=== PATIENT | female | born 1950 | race Caucasian/White ===

== ENCOUNTER 2021-04-28 14:41 | Outpatient (CLI) | payer MEDICARE, SELFPAY ==
--- NOTE | ~2021-04-28 | XR_ITS ---
EXAMINATION: XR chest 2V EXAM DATE: 04/28/2021 15:06 INDICATION: R05 - Cough. TECHNIQUE: Frontal and lateral projections of the chest obtained and reviewed. Comparison is made to prior examination from 2012. FINDINGS: There is right upper lobe 2 x 4 cm opacity which could be pneumonia or cancer. If patient has pneumonia clinically a followup chest x-ray in 3-4 weeks, and to resolution, should be obtained t o exclude possibility of cancer. If the patient does not have pneumonia clinically, then a chest CT w ith contrast should be considered for better characterization. The lungs are otherwise clear. There are no pleural effusions. The cardiomediastinal silhouette is within normal limits. There is no pneumothorax suspected. The bones and soft tissues are unremarkab le. IMPRESSION: Indeterminate right upper lobe opacity, could be pneumonia or cancer. Recommendation radha ronquillo. Reviewed, dictated and finalized at location B. IMPRESSION: Indeterminate right upper lobe opacity, could be pneumonia or cance r. Recommendation above.
== END 2021-04-28 14:42 | disposition home or self-care (01) ==
LOC: ANHIMG 14:47
PROVIDERS: PCP Internal Medicine; Visit Provider Nurse Practitioner
DX: R05 Cough (principal)
CPT/HCPCS: 71046

== ENCOUNTER → 2021-05-19 08:57 | Outpatient (CLI) | payer MEDICARE, SELFPAY ==
--- NOTE | ~2021-05-19 | CT_ITS ---
EXAMINATION:CT diagnostic chest w con DATE: 05/19/2021 09:35 INDICATION: Chronic cough. TECHNIQUE: Computed tomography (CT) of the chest was performed with 75 mL Omnipaque 350 intravenous c ontrast. Automated exposure control and iterative reconstruction technique were employed. The dose-le ngth product (DLP) was 127.95 mGy-cm. COMPARISON: Chest 2 views 04/28/2021 FINDINGS: There is mild scarring at the lung apices. There is mild atelectasis bilaterally. There is a 3.6 x 1.2 cm mass in right lung upper lobe. There are clusters of nodules in right middle lobe. No pleural effusion. The heart size is normal. No pericardial effusion. There is ectasia of ascending ao rta measuring 4.0 cm. There are bilateral breast implants. There is severe thoracic spondylosis. IMPRESSION: 1. Right lung upper lobe mass and clustered nodules in right middle lobe. The morphology of these fin dings favors granulomatous disease, but right upper lobe malignancy is not excluded. PET/CT is recomm ended. Reviewed, dictated and finalized at location A. IMPRESSION: 1. Right lung upper lobe mass and clustered nodules in right middle lobe. The m orphology of these findings favors granulomatous disease, but right upper lobe malignancy is not excluded. PET/CT is recommended.
[2021-05-19 09:16] LABS: Estimated Glomerular Filt Rate > 60
== END ==
PROVIDERS: PCP Internal Medicine; Visit Provider Nurse Practitioner
DX: R05.9 Cough, unspecified (principal); R91.1 Solitary pulmonary nodule; R91.8 Other nonspecific abnormal finding of lung field
CPT/HCPCS: 71260; Q9967

== ENCOUNTER 2021-05-31 07:45 | Outpatient (CLI) | payer MEDICARE, SELFPAY ==
--- NOTE | ~2021-05-31 | PE_ITS ---
EXAMINATION: PET skull to mid thigh DATE: 05/31/2021 09:31 INDICATION: Solitary pulmonary nodule TECHNIQUE: Blood glucose level was 85 mg/dL. 9.677 mCi of 18-fluorodeoxyglucose (18-FDG) was administ ered i.v. Low dose computed tomography (CT) images were acquired from the base of the brain to the pr oximal thighs for attenuation correction and anatomic localization. Positron emission tomography (PET ) images were acquired in the same distribution beginning 56 minutes after injection. The dose-length product (DLP) was 245.58 mGy-cm. COMPARISON: None FINDINGS: Head/neck: No abnormal FDG uptake is identified. FDG activity in the oral cavity and vocal cords with out suspicious CT correlate is likely physiologic. Chest: There is a stable 3.6 x 1.4 cm mass of the right upper lobe. There is a focus of increased FDG uptake at the periphery of the mass with an SUV max of 4.9. Low level FDG activity is seen in the me dial portion of the mass. There is a cluster of subpleural nodules in the right middle lobe with mild FDG activity. Dependent atelectasis is noted. No pathologically enlarged thoracic lymph nodes are id entified. The heart size is normal. There is no pleural effusion or pneumothorax. Bilateral breast im plants are noted. The ascending aorta is ectatic measuring 4 cm at the level of the main pulmonary ar kamryn. A pessary is noted. Abdomen/pelvis/proximal thighs: No abnormal FDG uptake is identified. Physiologic FDG activity is pre sent in the bowel and urinary tract. The liver, spleen, pancreas, gallbladder, and adrenal glands are normal. The kidneys are unremarkable. No pathologically enlarged abdominal or pelvic lymph nodes are identified. There is no free intraperitoneal gas or evidence of bowel obstruction. There is a fat-co ntaining umbilical hernia. A moderate volume of colonic stool is present. Musculoskeletal: No abnormal FDG uptake is identified. There is severe cervical thoracic, and lumbar spondylosis. IMPRESSION: 1. Stable right upper lobe mass with peripheral FDG uptake. Presence of peripheral, rather than centr al, FDG uptake favors infection over malignancy as central FDG uptake with peripheral low level activ ity would be more commonly seen with malignancy. In addition, the presence of airspace opacities with low level FDG uptake in the right middle lobe also suggest infection. Follow-up CT in six weeks afte r appropriate therapy is recommended. If there is no appreciable interval improvement, biopsy should be considered at that time. Reviewed, dictated and finalized at location A. IMPRESSION: 1. Stable right upper lobe mass with peripheral FDG uptake. Presence of periphe ral, rather than central, FDG uptake favors infection over malignancy as centra l FDG uptake with peripheral low level activity would be more commonly seen wit h malignancy. In addition, the presence of airspace opacities with low level FD G uptake in the right middle lobe also suggest infection. Follow-up CT in six w eeks after appropriate therapy is recommended. If there is no appreciable inter mu improvement, biopsy should be considered at that time.
[2021-05-31 08:05] LABS: Glucose Point of Care 85 mg/dl (65-105)
== END 2021-05-31 07:46 | disposition home or self-care (01) ==
PROVIDERS: PCP Internal Medicine; Visit Provider Nurse Practitioner
DX: R91.1 Solitary pulmonary nodule (principal); R91.8 Other nonspecific abnormal finding of lung field
CPT/HCPCS: 78815; A9552

== ENCOUNTER 2021-07-28 09:47 | Outpatient (CLI) | payer MEDICARE, SELFPAY ==
--- NOTE | ~2021-07-28 | CT_ITS ---
EXAMINATION: CT diagnostic chest w con DATE: 07/28/2021 10:10 INDICATION: Solitary pulmonary nodule TECHNIQUE: Computed tomography (CT) of the chest was performed with 75 cc Omnipaque 350 intravenous c ontrast. Automated exposure control and iterative reconstruction technique were employed. Exam dose: 128.20 mGy-cm total exam DLP. COMPARISON: 05/31/[address] scan 05/19/2021 CT chest 04/28/2021 2 view chest FINDINGS: There is an approximately 1.4 x 3.1 cm irregular posterior right upper lobe lung mass, with out improvement since 05/19/2021, FDG avid on 05/31/2021 PET imaging, very suspicious for primary beatriz g cancer. CT guided percutaneous lung biopsy is recommended. There is mild bilateral apical scarring. No pulmonary infiltrate or consolidation is detected. Heart size is normal. No pericardial or pleural effusion. No thoracic aortic aneurysm or dissection. No hilar or mediastinal mass lesion or lymphadenopathy is detected. Status post bilateral augmentation mammoplasty. No suspicious osteolytic or osteoblastic lesions are noted. IMPRESSION: Persistent right upper lobe irregular lung mass measuring up to 1.4 x 3.1 cm, FDG avid, suspicious for lung cancer. CT guided percutaneous needle biopsy is recommended. Dr. Berger communicated the report by telephone on 07/28/[address] Dowling on 07/28/2021 at 1340 ho urs hours. Reviewed, dictated and finalized at Location A. Reviewed, dictated and finalized at location B. [employer] EXAMINER IMPRESSION: Persistent right upper lobe irregular lung mass measuring up to 1. 4 x 3.1 cm, FDG avid, suspicious for lung cancer. CT guided percutaneous needle biopsy is recommended. Dr. Berger communicated the report by telephone on 07/28/[address] Dolwing on 07/28/2021 at 1340 hours hours.
[2021-07-28 10:09] LABS: Estimated Glomerular Filt Rate > 60
== END 2021-07-28 09:48 | disposition home or self-care (01) ==
LOC: ANHIMG 09:47
PROVIDERS: PCP Internal Medicine; Visit Provider Nurse Practitioner
DX: R91.8 Other nonspecific abnormal finding of lung field (principal)
CPT/HCPCS: 71260; Q9967

== ENCOUNTER 2021-10-21 15:51 | Outpatient (CLI) | payer MEDICARE, SELFPAY ==
--- NOTE | ~2021-10-21 | XR_ITS ---
EXAMINATION: XR chest 2V DATE: 10/21/2021 16:18 INDICATION: Cough. Shortness of breath. TECHNIQUE: Frontal and lateral views of the chest were obtained. COMPARISON: Chest 2 views 04/28/2021, chest CT 07/28/2021, 05/19/21 FINDINGS: There is a 3 x 1 cm mass in right lung upper lobe. There is mild scarring at the lung apice s. No pleural effusion or pneumothorax. The heart size is normal. Breast implants are noted. IMPRESSION: 1. Mass again seen in right lung upper lobe, which may be malignancy or chronic infection. Noncontras t chest CT is recommended. Reviewed, dictated and finalized at location A. IMPRESSION: 1. Mass again seen in right lung upper lobe, which may be malignancy or chronic infection. Noncontrast chest CT is recommended.
== END 2021-10-21 15:52 | disposition home or self-care (01) ==
LOC: ANHIMG 15:57
PROVIDERS: PCP Internal Medicine; Visit Provider Family Medicine
DX: R05.9 Cough, unspecified (principal); R06.02 Shortness of breath; R91.8 Other nonspecific abnormal finding of lung field
CPT/HCPCS: 71046

== ENCOUNTER 2021-12-13 08:30 | Outpatient (CLI) | payer MEDICARE, SELFPAY ==
[2021-12-13] MEDS: SODIUM CHLOR 3% 15 ML NEB (RESPIRATORY THERAPY) 6 ML INHALATION (09:00)
== END 2021-12-13 08:31 | disposition home or self-care (01) ==
LOC: ANHPFT 08:32
PROVIDERS: PCP Internal Medicine; Visit Provider Internal Medicine Pulmonary Disease
DX: R05.9 Cough, unspecified (principal); R91.8 Other nonspecific abnormal finding of lung field
CPT/HCPCS: 87015; 87116; 87206

== ENCOUNTER 2022-01-04 09:11 | Outpatient (CLI) | payer MEDICARE, SELFPAY ==
[2022-01-04 09:55] LABS: Basophils Percent Auto 0.4 % (0.2-1.2); Eosinophils Absolute Auto 0.1 K/mm3 (0-0.3); Eosinophils Percent Auto 1.7 % (0-4.4); Hemoglobin 13.2 g/dL (12.0-15.0); Immature Granulocyte Absolute 0.01 K/mm3 (0.00-0.031); Immature Granulocyte Percent A 0.1 % (0-0.5); Lymphocytes Absolute Auto 2.87 K/mm3 (0.9-3.2); Lymphocytes Percent Auto 41.8 % (18.3-44.2); Mean Corpuscular HGB Conc 31.4 g/dl (32-36); Mean Corpuscular Hemoglobin 29.7 pg (26-34); Mean Corpuscular Volume 94.4 fl (80-100); Monocytes Absolute Auto 0.8 K/mm3 (0.1-0.6); Monocytes Percent Auto 12.2 % (2.6-8.5); Neutrophils Percent Auto 43.8 % (45.5-73.1); Platelet Count Result 306 k/mm3 (150-375); Red Blood Count 4.45 M/mm3 (4.2-5.4); Red Cell Distribution Width 12.8 % (11.5-14.5); White Blood Count 6.9 K/mm3 (4.5-10.0)
[2022-01-04 10:05] LABS: Alanine Aminotransferase 21 U/L (6-35); Albumin Level 4.3 g/dL (3.5-5.1); Alkaline Phosphatase 73 U/L (38-126); Anion Gap 4 mmol/L (8-16); Aspartate Amino Transferase 37 U/L (14-36); Bilirubin,Total 0.6 mg/dL (0.2-1.3); Blood Urea Nitrogen 11 mg/dL (7-17); CRP < 0.5 mg/dL (<1.0); Calcium 8.8 mg/dL (8.4-10.2); Carbon Dioxide 30 mmol/L (22-30); Chloride 105 mmol/L (98-107); Creatine Kinase 263 U/L (30-135); Estimated Glomerular Filt Rate > 60; Glucose 94 mg/dL (65-110); Potassium 3.9 mmol/L (3.4-5.0); Sodium 139 mmol/L (137-145)
[2022-01-04 10:19] LABS: Rheumatoid Factor < 8.6 IU/ML (<12)
[2022-01-04 10:50] LABS: Erythrocyte Sedimentation Rate 10 mm/hr (0-20)
[2022-01-06 11:29] LABS: Aldolase 6.1 U/L (<=8.1)
[2022-01-07 15:44] LABS: ANA Cascade Screen Negative (Negative)
[2022-01-08 13:05] LABS: Anti Cyclic Citrullinated Pept <16 Units (<20)
[2022-01-13 22:30] LABS: ANCA Screen Negative (Negative)
== END 2022-01-04 09:12 | disposition home or self-care (01) ==
LOC: ANHLAB 09:18
PROVIDERS: PCP Internal Medicine; Visit Provider Internal Medicine Pulmonary Disease
DX: J98.4 Other disorders of lung (principal); J84.9 Interstitial pulmonary disease, unspecified; J44.9 Chronic obstructive pulmonary disease, unspecified; R91.1 Solitary pulmonary nodule
CPT/HCPCS: 36415; 80053; 82085; 82550; 85025; 85652; 86036; 86038; 86140; 86200; 86331; 86430; 86606; 86609

== ENCOUNTER 2023-03-27 09:39 | Emergency (ER) | payer MEDICARE, SELFPAY ==
[2023-03-27 09:57] VITALS: BP 120/81; PULSE 66; RESP 18; TEMP 36.5; O2SAT 100
[2023-03-27 11:14] VITALS: BP 127/90; PULSE 69; RESP 18; O2SAT 100
[2023-03-27 13:01] VITALS: BP 105/63; PULSE 55; RESP 18; O2SAT 99
--- NOTE | 2023-03-27 13:07 | ED.GENADULT ---
HPI - General Adult General Chief complaint: Wound/Laceration Stated complaint: right leg lac Time Seen by Provider: 03/27/23 11:55 History of Present Illness HPI narrative: 72-year-old female present emergency department for evaluation for evaluation of an injury to her right leg. Patient reports yesterday she was working in the yard and had her leg cut on a planter. Patient states she is unsure of her tetanus status. Related Data Home Medications Medication Instructions Recorded Confirmed ascorbate calcium (vitamin C) 500 500 mg PO DAILY 03/24/21 03/22/23 mg tablet multivitamin 1 tablet PO DAILY 03/24/21 03/22/23 iron 18 mg tablet 18 mg PO DAILY 03/28/22 03/22/23 vitamin B complex (B 1 tablet PO DAILY 03/28/22 03/22/23 Complex-Vitamin B12 tablet) zinc 25 mg tablet mg PO 03/28/22 03/22/23 wes root extract 15 mg chewable mg PO 10/03/22 03/22/23 tablet omega 3-atm-leo-fish oil 60 mg-90 1 cap PO DAILY 10/03/22 03/22/23 mg-500 mg capsule (Fish Oil) selenium 200 mcg capsule 200 mcg PO DAILY 10/03/22 03/22/23 nitrofurantoin 100 mg PO DAILY 03/27/23 monohydrate/macrocrystals 100 mg capsule Allergies Allergy/AdvReac Type Severity Reaction Status Date / Time No Known Allergies Allergy Mild Verified 03/27/23 09:04 Review of Systems Review of Systems: All systems reviewed & are unremarkable except as noted in HPI and below PMFSH Past Medical History Medical History Ascending aortic aneurysm GERD (gastroesophageal reflux disease) HPV (human papilloma virus) infection Lung nodule Osteoarthritis Surgical History Surgical History Knee joint replacement status Family History Family History Father Patient's father is in good health Mother Renal failure Sibling Heart disease Social History Social History Smoking status: Never smoker Alcohol intake: former Lack of Transportation: No Lack of Food: Never True Current Housing: I Have Housing Concerned About Future Housing: No Difficulty Paying Gas/Electric Bills: No Difficulty Paying for Meds: No Currently Unemployed: YES Education: High School Diploma/GED Difficulty w/ Childcare or Family Care: No Exam Narrative: APPEARANCE: Well appearing, no pain, no distress, well-nourished. HEAD: normocephalic, atraumatic. EYES: PERRLA/EOMI, conjunctivae clear. NOSE: Normal no drainage NECK: Supple. No adenopathy, no masses. RESPIRATORY: Airway patent, respirations nonlabored. Clear to auscultation bilaterally, no rales, rhonchi, wheezing. CARDIOVASCULAR: Regular rate and rhythm without murmurs rubs or gallops. ABDOMINAL: Soft, nontender, nondistended, normal bowel sounds MUSCULOSKELETAL: Moves all extremities. Strength/ROM intact, No edema, No calf tenderness. NEURO: Alert. Cranial nerves II through XII intact. Grossly intact SKIN: Laceration to right lateral leg, hemostasis achieved. Course Course Emergency Course: 72-year-old female presented ED for evaluation of right leg pain secondary to a laceration. Patient was unsure of her tetanus and this was updated in the ED. Patient was also started on Keflex. Laceration was repaired as described above. Patient was started on antibiotics in the emergency department. Patient was discharged home with antibiotics. Patient's tetanus was updated in the ED. Vital Signs Vital signs: Vital Signs Temperature 97.7 F 03/27/23 09:57 Pulse Rate 66 03/27/23 09:57 Respiratory Rate 18 03/27/23 09:57 Blood Pressure 120/81 03/27/23 09:57 Pulse Oximetry 100 03/27/23 09:57 Oxygen Delivery Room Air 03/27/23 09:57 Temperature 97.7 F 03/27/23 09:57 Pulse Rate 62 03/27/23 15:06 Respiratory Rate 18 03/27/23 15:06 Blood Press
[2023-03-27] MEDS: CEPHALEXIN 500 MG CAPSULE PO (13:22)
[2023-03-27] MEDS: TETANUS,DIPHTHERIA,AC PERTUSSIS ADULT (0.5 ML) BOOSTRIX IM (13:23)
[2023-03-27 15:06] VITALS: BP 113/78; PULSE 62; RESP 18; O2SAT 99
== END 2023-03-27 15:14 | disposition home or self-care (01) ==
PROVIDERS: Emergency Provider Emergency Medicine; PCP Internal Medicine
DX: S81.811A Laceration without foreign body, right lower leg, initial encounter (principal); Z23 Encounter for immunization; K21.9 Gastro-esophageal reflux disease without esophagitis; M19.90 Unspecified osteoarthritis, unspecified site; Y93.H2 Activity, gardening and landscaping; W26.8XXA Contact with other sharp object(s), not elsewhere classified, initial encounter; Z96.659 Presence of unspecified artificial knee joint
CPT/HCPCS: 12004; 90471; 90715; 99283; A9270

== ENCOUNTER 2023-10-16 08:44 | Outpatient (CLI) | payer MEDICARE, SELFPAY ==
--- NOTE | ~2023-10-16 | CT_ITS ---
EXAMINATION:CT diagnostic chest wo con DATE: 10/16/2023 09:20 INDICATION: Solitary pulmonary nodule. TECHNIQUE: Computed tomography (CT) of the chest was performed without intravenous contrast. Automate d exposure control and iterative reconstruction technique were employed. The dose-length product (DLP ) was 56.31 mGy-cm. COMPARISON: Chest CT 02/22/2022, 05/19/2021 FINDINGS: There is mild scarring at the lung apices. There is a 17 mm nodule in right upper lobe with improvement from 05/19/2021. Calcified pulmonary nodules and calcified hilar lymph nodes are consist ent with old granulomatous disease. There is mild atelectasis in right middle lobe and lingula. 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 No pleural effusion. Breast implants are noted. There is ectasia of ascending aorta measuring 4.2 cm. The heart size is normal. There is a trace pericardial effusion. There is severe thoracic spondylosis. There is mild chronic anterior wed ging of multiple vertebral bodies. IMPRESSION: 1. Right upper lobe nodule with improvement from 05/19/2021, likely granulomatous disease. Reviewed, dictated and finalized at location A. IMPRESSION: 1. Right upper lobe nodule with improvement from 05/19/2021, likely granulomato us disease.
== END 2023-10-16 08:45 | disposition home or self-care (01) ==
PROVIDERS: PCP Internal Medicine; Visit Provider Internal Medicine Pulmonary Disease
DX: R91.1 Solitary pulmonary nodule (principal)
CPT/HCPCS: 71250

== ENCOUNTER 2024-04-10 09:41 | Outpatient (CLI) | payer MEDICARE, SELFPAY ==
--- NOTE | ~2024-04-10 | US_ITS ---
EXAMINATION: US aorta DATE: 04/10/2024 10:43 INDICATION: Thoracic aortic aneurysm without rupture TECHNIQUE: Grayscale, color Doppler, and pulsed Doppler images of the aorta and common iliac arteries were obtained. COMPARISON: None. FINDINGS: The proximal aorta measures 2.8 cm. The mid aorta measures 1.7 cm. The distal aorta measures 1.7 cm. The right common iliac artery measures 1.0 cm. The left common iliac artery measures 1.1 cm. IMPRESSION: 1. Normal caliber abdominal aorta. Reviewed, dictated and finalized at location A.
== END 2024-04-10 09:42 | disposition home or self-care (01) ==
PROVIDERS: PCP Nurse Practitioner; Visit Provider Nurse Practitioner
DX: I71.20 Thoracic aortic aneurysm, without rupture, unspecified (principal)
CPT/HCPCS: 76775

== ENCOUNTER 2024-08-21 09:03 | Outpatient (CLI) | payer MEDICARE, MEDICAID, SELFPAY ==
--- NOTE | ~2024-08-21 | DEXA_ITS ---
Bone Density Report Name: LIZZY BELL Age: 74 Sex: Female Ethnicity: White Date of : 1950 Indication: postmenopausal; screening for osteoporosis; height loss; hysterectomy; Referring Provider: JOAQUIN SANFORD Study: Bone densitometry was performed. Exam Date: August 21, 2024 Accession number: [id number] Bone Density: Region BMD T-score Z-score Classification AP Spine(L1-L4) 0.834 -1.9 0.3 Osteopenia Femoral Neck (Left) 0.476 -3.4 -1.4 Osteoporosis Total Hip (Left) 0.886 -0.5 1.2 Normal Femoral Neck (Right) 0.679 -1.5 0.4 Osteopenia Total Hip (Right) 0.839 -0.8 0.8 Normal Total Hip Mean 0.863 -0.7 1.0 Normal World Health Organization criteria for BMD impression classify patients as: Normal (T-score at or above -1.0), Osteopenia (T-score between -1.0 and -2.5), or Osteoporosis (T-score at or below -2.5). 10-year Fracture Risk: FRAX not reported because: Some T-score for Spine Total or Hip Total or Femoral Neck at or below -2.5 Clinical Information Provided by Patient: Has used the following medications: Vitamin D, Calcium Has the following medical conditions: Hysterectomy Patient maximum height was 64 Menopause Age: 73 No regular weight bearing exercise Drinks caffeinated beverages Onset of menses at age 14 Number of children 3 Impression: The patient has osteoporosis, based on the Left Femoral Neck T-score. Discussion: INCREASED RISK OF FRACTURE. BONE DENSITY IS UNDESIRABLY LOW AT ONE OR MORE SKELETAL SITES, CONSISTENT WITH POSTMENOPAUSAL OSTEOPOROSIS. This patient's lowest T-score meets the World Health Organization's (WHO) criteria for osteoporosis at one or more sites (T-score -2.5 or below). In untreated patients, the risk of osteoporotic fracture increases approximately two-fold for each 1.0 SD decrease in T-score. Low bone density is not the only risk factor for fracture; also consider factors such as patient's age, frailty or poor health, risk of falling, risk of injury, previous osteoporotic fracture, family history of osteoporosis, cigarette smoking, low body weight, etc. Not everyone with low bone mineral density has osteoporosis; osteomalacia and other metabolic bone disorders should also be considered. Patients who have osteoporosis should be evaluated for specific diseases and conditions (secondary causes) that may cause or contribute to bone loss. The [place] [employer] Endocrinologists (AACE) and National Osteoporosis Foundation (NOF) recommend pharmacologic intervention for all postmenopausal women whose T-score is in this range. The patient should follow a healthful lifestyle (good nutrition with adequate calcium and vitamin D, and appropriate weight-bearing exercise). Follow-Up: Consider a repeat BMD and Vertebral Fracture Assessment (VFA) exam in 2 years or sooner if medically necessary, to reassess this patient's status. Reported by: LEIGH on 08/21/2024 9:56:00 AM. Reviewed, dictated and finalized at location AEarlene SAINI
--- NOTE | ~2024-08-21 | MM_ITS ---
EXAMINATION: MM screening ramon BI w sandra HISTORY: Screening mammogram TECHNIQUE: Craniocaudal and mediolateral oblique 3-D tomosynthesis images were obtained and synthetic 2-D images were generated. CAD analysis was submitted and interpreted. COMPARISON: 06/11/2013 BREAST PARENCHYMAL COMPOSITION:Dense: The breasts are heterogeneously dense, which may obscure small masses. FINDINGS: No suspicious mass, calcification, or architectural distortion are identified in either yuli ast to suggest malignancy. There has been no suspicious interval change. IMPRESSION: No mammographic evidence of malignancy. Recommend routine screening mammography in one year. BI-RADS Category 1: Negative Reviewed, dictated and finalized at location . [employer]
--- OUTSIDE RECORDS SUMMARY | 2024-08-28 01:56 | XMS_ITS | Clinical Summary ---
Author Organization [facility] Address [address] [place] [address] Care Team Providers Care Face Burler Name Role Phone Derrell Mcmahan DO Primary Care Provider [phone] Allergies No known active allergies Medications multivitamin with iron tablet Take 1 tablet by mouth daily after lunch Active calcium carbonate-wilman min D3 (CALTRATE 600 + D) 1500 mg (600 mg elemental) -400 units per tablet Take 1 tablet by mouth daily after lunch Active iron 18 mg tablet Take 1 tablet by mouth daily after lunch Active zinc acetate 25 mg (zinc) capsule Take by mouth Medrol Dose Pack scheduling ONLY Active selenium 200 mcg capsule Take by mouth daily after lunch Active krill oil 500 mg capsule Take by mouth daily after lunch Active vitamin b complex tablet Take 1 tablet by mouth daily after lunch Active ascorbic acid (VITAMIN C ORAL) Take by mouth daily after lunch Active wes root (WES EXTRACT ORAL) Take by mouth daily after lunch Active estradioL (VAGIFEM) 10 mcg tablet INSERT 1 TABLET(10 MCG) VAGINALLY 3 TIMES A WEEK 35 tablet 3 4 Active sodium, potassium & mag sulfates (SUPREP BOWEL KIT) 17.5-3.13-1.6 gram recon solnIndication s:Bowel Evacuation Please follow the instructions that were sent to your patient portal 177 mL 4 024 Discontin ued(Stop Taking at Discharge ) Active Problems Problem Noted Date Diagnosed Date Hx of colonic polyps 06/20/2024 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 Provider places/replaces. Upsized to #5 ring (from #4 ring) in 2021. 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 Pt desires hyst. 08/31/23: LAVH-BSO, vaginal biopsy, uterosacral ligament suspesion (Ghetti), colpo. Pathology benign without e/o dysplasia Assessment & Plan (09/26/2023 12:23 PM BUDDER): - reviewed surgical pathology; completely benign - recommend repeat pap in 1yr; vaginal paps q3yr for duration Mass of right lung 08/02/2021 Pap smear abnormality of cer vix/human papillomavirus (HPV) positive 04/27/2019 Overview (11/24/2020): 2017: NILM, HR HPV positive 2018: NILM, neg 2019: Cotest performed due to white are visualized on cervix. Pap ASC-H, HPV positive Colposcopy inadequate, biopsies/ECC negative. Results reviewed with pathology. 2020: ASC-US, HPV negative 2021: Cotest due Breast lump 07/27/2017 Positive test for human papillomavirus (HPV) Menopause present 05/01/2017 Brachial plexus neuropathy 04/26/2015 Lumbago 04/26/2015 Gastroesophageal reflux disease 02/16/2014 Sore throat 02/16/2014 Localized swelling, mass, and lump of head 02/16 Breast disorder 07/21/2013 Knee pain 03/12/2012 Resolved Problems Problem Noted Date Diagnosed Date Resolved Date Surgical follow-up care 08/14/201209/07 Encounters Date Type Department Care Team Description 08/04/2024 2:30 PM BUDDER - 08/04/2024 3:15 PM BUDDER Surgery [facility] [address] [address] Ubaldo Morgan MD COLONOSCOPY 08/04/2024 2:27 PM BUDDER Anesthesia Event [facility] [address] [address] Janett Green MD Zueck, Jason M., CARD SELLER 08/04/2024 1:32 PM BUDDER - 08/04/2024 3:45 PM BUDDER Hospital Encounter [facility] [address] [address] Ubaldo Morgan MD Discharge Disposition: Discharge to home or self care 07/28/2024 Telephone [facility] [address] [place] [phone] Ludy Alexander RN 07/28/2024 Telephone [facility] [address] [place] [phone] Ludy Alexander, RN GI PROCEDURE 7 DAY PRE CALL 06/20/2024 Telephone [facility] [address] [place] [address] for Advanced Medicine 12th [place] [address] [place] [phone] Jayla Taylor gi pre procedure assessment from Last 3 Months Immunizations Name Administration Dates Next Due Influenza, Quadrivalent, Hig h Dose, Preservative Free, Intrr 04/07/2022,05/17/2021 Influenza, Quadrivalent, Spl it, Preservative Free, Intramuscular 10/11/2015 Influenza, Trivalent, IM (MDV) 05/18/2014 Influenza, Unspecified 07/19/2017,08/13/2012 Pneumococcal Conjugate Pcv20 04/07/2022,11/03/19 22 Tdap 12/03/2015 ZOSTER LIVE 04/10/2014 Surgical History Surgery Date Site/Laterality Comments EPIDURAL INJECTION LUMBOSACRAL 05/27/2015 N/A KNEE SURGERY Bilateral replacement COLPOSCOPY TRANSUMBILICAL AUGMENTATION MAMMAPLASTY COLONOSCOPY LAPAROSCOPICALLY ASSISTED VA GINAL HYSTERECTOMY 08/28/2023 BILATERAL SALPINGOOPHORECTOMY 08/28/2023 COLPOPEXY 08/28/2023 uterosacral LAPAROSCOPIC ASSISTED RADICA L VAGINAL HYSTERECTOMY W/ NODE BIOPSY 08/28/2023 posterior HYSTERECTOMY CERVICAL BIOPSY W/ LOOP ELECTRODE EXCISION Medical History Medical History Date Comments Colon polyp Abnormal Pap smear of cervix 04/28/2019 ASC -US/Negative HPV GERD (gastroesophageal reflux disease) Osteoarthritis HPV (human papilloma virus) infection Family History Medical History Relation Name Comments No Known Problems Father Breast cancer Maternal Grandmother Family history of malignant neoplasm of breast - (Added by TW Conv) Anesthesia problems Neg Hx Relation Name Status Comments Father Maternal Grandmother Mother Alive Social History Tobacco Use Types Packs/Day Years Used Date Smoking Tobacco: Never Smokeless Tobacco: Never Tobacco Cessation:Counseling Given: Not Answered Alcohol Use Standard Drinks/Week Comments Yes 5 (1 standard drink = 0.6 oz pur e alcohol) AUDIT-C Answer Date Recorded Q1: How often do you have a drink containing alcohol? 4 or more times a week 08/04/2024 Q2: How many drinks containi ng alcohol do you have on a typical day when you are drinking? 1 or 2 Frequency of Binge Drinking Not on file 07/08 Personal Safety Answer Date Recorded Have you ever been in or are you currently in a harmful physical or emotional relationship or is someone making you feel afraid or unsafe? Denies 08/04/2024 Comments No Sex and Gender Information Value Date Recorded Sex Assigned at Not on file Legal Sex Female 2:49 AM BUDDER Gender Identity Not on file Sexual Orientation Not on file Obstetrics History Para Term AB IAB SAB Ectopic Multiple Livin g Live Births 4 3 3 1 1 3 3 Date Outcome GA Total Labor Labor/2nd/3rd Weight Sex Type Anes PTL Valeria A1 A5 Name Clin 1971 Term M Vag-S pont Living Complications:None 1972 SAB 1973 Term M Vag-S pont Living Complications:None 1976 Term M Vag-S pont Living Complications:None Last Filed Vital Signs Vital Sign Reading Time Taken Comments Blood Pressure 117/71 08/04/2024 3:20 PM BUDDER Pulse 53 08/04/2024 3:20 PM BUDDER Temperature 36 ??C (96.8 ??F) 08/04/2024 3:00 PM BUDDER Respiratory Rate 19 08/04/2024 3:20 PM BUDDER Oxygen Saturation 97% 08/04/2024 3:20 PM BUDDER Inhaled Oxygen Concentration - - Weight 54.4 kg (120 lb) 08/04/2024 2:21 PM BUDDER Height 157.5 cm (5' 2 ) 08/04/2024 2:21 PM BUDDER Body Mass Index 21.95 08/04/2024 2:21 PM BUDDER Plan of Treatment Health Maintenance Due Date Last Done Comments Depression Screening 1950 Hepatitis B Screening 1969 Zoster Vaccine (2 of 3) 06/05/2014 04/10/2014 Well Visit 65+ 11/09/2023 11/08/2022, 11/04, 11/09/2020, Additional history exists Osteoporosis Screening-Bone Density Scan 12/13/2023 12/12/2021 Breast Cancer Screening-Mammogram 03/12/2024 03/12/2023, 01/17/2022, 11/16/2020, Additional history exists Covid-19 Vaccine (2023-2 5 season) 2024 04/28/2022, 11/30/2021, 06/23/2021, Additional history exists Influenza Vaccine (#1) 2024 , 05/17/2021, 07/19/2017, Additional history exists Fall Risk Assessment 08/04/2025 08/04/2024 DTaP/Tdap/Td Vaccine (2 - Td or Tdap) 12/02/2025 12/03/2015 Colon Cancer Screening-Colonoscopy 08/04/2034 08/04/2024, 08/08/2018 Hepatitis C Screening Completed 04/28/2019 Pneumococcal vaccine 65+ Completed 04/07/2022, 10/06 Colon Cancer Screening-CT Colonography Discontinued 08/04/2024, 08/08/2018 Colon Cancer Screening-DNA Stool Discontinued 08/04/20 24, 08/08/2018 Colon Cancer Screening-FIT Discontinued 08/04/2024, Colon Cancer Screening-Sigmoidoscopy Discontinued 08/04/2024, 08/08/2018 Procedures Procedure Name Priority Date/Time Associated Diagnosis Comments COLONOSCOPY 08/04/2024 2:32 PM BUDDER COLONOSCOPY 08/04/2024 2:26 PM BUDDER Hx of colonic polyps SCREENING MAMMOGRAM BILATERAL W FRITZ W IMPLANTS Schedule Routine, Read Routine (OP Routine) 03/12/2023 8:45 AM CDT Screening mammogram, encounter for DEXA AXIAL SKELETON BONE DENSITY 1 OR MORE SITES Schedule Routine, Read Routine (OP Routine) 12/12/2021 2:26 PM CDT Well woman exam with routine gynecological exam Other specified menopausal and perimenopausal disorders HEPATITIS C ANTIBODY Routine 04/28/2019 11:15 AM CDT Well woman exam with routine gynecological exam from Last 3 Months or Most Recently Relevant to Health Maintenance Results * Colonoscopy (08/04/2024 2:32 PM BUDDER) Anatomical Region Laterality Modality Other Narrative Procedure Note Ubaldo Morgan MD - 08/04/2024 2:32 PM CST [facility] ENDOSCOPY [facility] Patient Name: Shi Reynolds Procedure Date: 08/04/2024 2:32 PM Date of : 1950 Admit Type: Outpatient Age: 74 Gender: Female Attending MD: Ubaldo Morgan M.D. Room: [facility] ENDOSCOPY ROOM 3 Note Status: Finalized Procedure: Colonoscopy Indications: Screening for colorectal malignant neoplasm, Last colonoscopy: August 2018 Referring MD: Derrell Mcmahan D.O. Providers: Ubaldo Morgan M.D. Medicines: Monitored Anesthesia Care Complications: No immediate complications. Estimated Blood Loss: Estimated blood loss: none. Procedure: Pre-Anesthesia Assessment: - Immediately prior to administration ofmedications, the patient was re-assessed for adequacy to receive sedatives. - The risks and benefits of the procedure and the sedation options and risks were discussed with the patient. All questions were answered and informed consent was obtained. The benefits, risks and alternatives of theprocedure and sedation were discussed and informed consentwas obtained. All questions were answered. Please referto the signed informed consent document in the medical record. The scope was passed under direct vision.The PC [id number] endoscope was introduced through the anus and advanced to the cecum, identified by appendiceal orifice and ileocecal valve. The colonoscopy was performed without difficulty. The patient tolerated the procedure well. The qualityof the bowel preparation was evaluated using the BBPS ([place] Bowel Preparation Scale) with scores of:Right Colon = 1 (portion of mucosa seen, but other areasnot well seen due to staining, residual stool and/or opaque liquid), Transverse Colon = 1 (portion of mucosa seen, but other areas not well seen due to staining, residual stool and/or opaque liquid) and Left Colon = 1 (portion of mucosa seen, but other areas not well seen due to staining, residual stool and/or opaque liquid). The total BBPS score equals3. The quality of the bowel preparation wasinadequate. The bowel preparation used was NuLytely via splitdose instruction. The quality of the bowel preparationwas unsatisfactory. Findings: Copious quantities of semi-liquid stool was found in the entirecolon, precluding visualization. Suctioning yielded scope channelobstruction twice before further attempts at suctioning/lavage deemed futile. Due to looping pre-empting easy intubation of the terminal ileum andthe indication for the procedure, the appendiceal orifice and ileo-cecal valve marked extent-reached. These landmarks were otherwise normal. Normal mucosa was found in the entire colon. Internal hemorrhoids were found during retroflexion. The hemorrhoids were small and Grade I (internal hemorrhoids that do not prolapse). Impression: - Preparation of the colon was inadequate for colon cancer screening purposes. - Normal mucosa and no polyps were found in thecolon that could be examined. - Internal hemorrhoids. Recommendation: - Return to primary care physician as previously scheduled. - Considering she is only at average-risk for colon cancer (i.e. her last colonoscopy histology did not reveal any adenomatous polyps), we could offer eugene non-invasive colon cancer screening test. If colonoscopy is then required for diagnostic intent, she would need 1 week low residue diet followed bya 2-day bowel prep. Electronically signed by Ubaldo Morgan MD Ubaldo Morgan M.D. 08/04/2024 2:57:50 PM . Number of Addenda: 0 Note Initiated On: 08/04/2024 2:32 PM Ubaldo Morgan MD ENDOSCOPY PROCEDURES Fin al Result * Screening Mammogram Bilateral W Firtz W Implants (03/12/2023 8:45 AM CDT) Anatomical Region Laterality Modality Breast Bilateral Mammography Narrative 03/13/2023 12:07 PM CDT Mammogram Technique: Bilateral Digital Breast Tomosynthesis, Bilateral C-view 2D Screening mammogram. ??Views obtained: ??bilateral craniocaudal; bilateral craniocaudal implant displaced; bilateral mediolateral oblique; and bilateral mediolateral oblique implant displaced. ??Computer Aided Detection was performed. Mammogram Findings: The present examination has been compared to prior imaging studies performed at [facility] on 08/20/2018, 11/16/2020 and 01/17/2022. The breasts are heterogeneously dense, which may obscure small masses. There are bilateral sub-pectoral silicone gel implants. There is no suspicious abnormality in either breast. Impression: There is no mammographic evidence of malignancy. Annual screening mammography is recommended. OVERALL FINAL ASSESSMENT: BI-RADS CATEGORY 1: ??Negative. Procedure Note Desiree Schultz MD - 03/13/2023 Mammogram Technique: Bilateral Digital Breast Tomosynthesis, Bilateral C-view 2D Screening mammogram. Views obtained: bilateral craniocaudal; bilateralcraniocaudal implant displaced; bilateral mediolateral oblique; and bilateral mediolateral oblique implant displaced. Computer Aided Detection was performed. Mammogram Findings: The present examination has been compared to prior imaging studies performed at [facility] on 08/20/2018, 11/16/2020 and 01/17/2022. The breasts are heterogeneously dense, which may obscure small masses. There are bilateral sub-pectoral silicone gel implants. There is no suspicious abnormality in either breast. Impression: There is no mammographic evidence of malignancy. Annual screening mammography is recommended. OVERALL FINAL ASSESSMENT: BI-RADS CATEGORY 1: Negative. us Self Screening Mammogram IMG MAMMO PROCEDURES Fi nal Result * Dexa Axial Skeleton Bone Density 1 Or 2 Site (12/12/2021 2:26 PM CDT) Anatomical Region Laterality Modality Body N/A Radiographic Emily ging Narrative 12/15/2021 11:15 AM CDT Patient Name: Shi Reynolds Date of : 1950 Date of scan: 12/12/2021 Bone mineral density was performed on a Colorescience Discovery Densitometer. ?? Based on machine cross-calibration and precision studies the least significant changes of this densitometer is 0.024 g/cm2 at the spine, 0.020 g/cm2 at the total proximal femur, and 0.014g/cm2 at the forearm. HISTORY: This is a 71 y.o. postmenopausal female with a history of osteoporosis. She reports that she has never smoked. She has never used smokeless tobacco. Currently on treatment with calcium and vitamin D, previously treated with risedronate (Actonel) and current complaint of back pain. INDICATIONS: Menopause status and history of osteoporosis. FINDINGS: BONE MINERAL DENSITY OF THE LUMBAR SPINE Bone Mineral Density (BMD) of the lumbar spine was measured from L1-L4 and the average density was calculated to be 0.822 gm/cm2. This corresponds to a T-score (standard deviations from the mean of young adults) of -1.8. There is no previous study available for comparison. BONE MINERAL DENSITY OF THE PROXIMAL FEMUR Bone Mineral Density (BMD) of the left hip total was found to be 0.820 gm/cm2. This corresponds to a T-score standard deviations from the mean of young adults of -1.0. Femoral neck is 0.660 gm/cm2 with a T-score (standard deviations from the mean of young adults) of -1.7. There is no previous study available for comparison. SUMMARY: Bone mineral density shows evidence of low bone mass at the lumbar spine and proximal femur and moderately increased fracture risk (Osteopenia). L4 excluded from bone mineral density analysis of the lumbar spine because of bone density being more than 1 standard deviation discrepant relative to one adjacent vertebra. ??Clinical correlation is recommended. ADDITIONAL COMMENTS: Postmenopausal Women and Men Over 50: Diagnostic criteria: Osteoporosis: BMD at or below -2.5 T-score; Osteopenia (low bone mass): BMD between -1.0 and -2.5 T-score. If the patient has a history of a fragility fracture, a fracture that occurred with trauma equivalent to a fall from a standing position or less, then the diagnosis is osteoporosis regardless of bone density. The history and data sections of the bone mineral density scan were prepared by Ade Ravi)(Wolf)(BD), CBDT who is accredited by the International Society of Clinical Densitometry. The overall patient assessment and scan interpretation were performed by Mely Estrada MD who is certified by the International Society of Clinical Densitometry. [id number] us Rocio Crane MD IM DXA PROCEDURES Tia l Result * Hepatitis C antibody (04/28/2019 11:15 AM CDT) Hep C Ab Nonreactive Nonreactive ASHLEY ARREAGA Comment: Interpretive Data Positive results should be confirmed by a molecular method. If positive, a second separately collected sample should be submitted for Hepatitis C Virus (HCV) RNA Detection and Quantitation by Real-Time Reverse Change Director-PCR (RT-PCR). Current interpretive data was last revised on 2016. Blood specimen (specimen) 04/28/2019 11:15 AM CDT 04/28/2019 11:47 AM CDT us Rocio Crane MD LAB MICROBIOLOGY - GENE RAL ORDERABLES Edited Result - Final ASHLEY ARREAGA [address] [place] [address] from Last 3 Months or Most Recently Relevant to Health Maintenance Insurance MEDICARE SOLUTIONS [employer] [facility]CR HMO REF MEDICARE SOLUTIONS MEDICARE SOLUTIONS Advance Directives For more information, please contact: [phone] * Full Code (Latest Code Status on File) Date Activated Date Inactivated Comments 08/28/2023 11:49 AM 08/28/2023 11:50 AM * Full Code Date Activated Date Inactivated Comments 08/08/2018 9:23 AM 08/08/2018 7:22 PM Care Teams Face Burler Relationship Specialty Start Date End Date Derrell Mcmahan DO PCP - General 07/20/17
--- OUTSIDE RECORDS SUMMARY | 2024-08-28 01:56 | XMS_ITS | Clinical Summary ---
Author Organization [employer] [facility] Address [address] Attn: Epic Prelude ADT CORI BILL [phone] Care Team Providers Care Casket Assembler Name Role Phone Unavailable Primary Care Provider Unavailabl e Social History Tobacco Use Types Packs/Day Years Used Date Smoking Tobacco: Never Assessed Comments Unknown Sex and Gender Information Value Date Recorded Sex Assigned at Not on file Legal Sex Female 5:04 AM HORSE DOCTOR Gender Identity Not on file Sexual Orientation Not on file Plan of Treatment Health Maintenance Due Date Last Done Comments DTAP/TDAP/TD VACCINES (1 - Tdap) 1970 BREAST CANCER SCREENING 1991 COLORECTAL SCREENING 1996 Colorectal Cancer Screening 1996 FIT-DNA Q 3 years 1996 FIT/FOBT Q 1 year 1996 Flex Sig/CT Colonography Q 5 years 1996 PNEUMOCOCCAL VACCINE 65+ YEARS (1 of 1 - PCV) 07/20/20 ZOSTER VACCINE (1 of 2) 2001 OSTEOPOROSIS SCREENING 2016 INFLUENZA VACCINE (#1) 2024 RSV VACCINE (60+ or ) (1 - 1-dose 75+ series) 2026
--- OUTSIDE RECORDS SUMMARY | 2024-08-28 01:56 | XMS_ITS ---
Author Organization [facility] Address [address] [place] [address] Care Team Providers Care Plate Setter Name Role Phone Derrell Mcmahan DO Primary Care Provider [phone] Active Problems Problem Noted Date Diagnosed Date [...] dysplasia Assessment & Plan (09/26/2023 12:23 PM NCR OPERATOR): - reviewed surgical pathology; completely benign - [...] 02/16 Breast disorder 07/21/2013 Knee pain 03/12/2012 Current Oncology Plans No current plan information found. Past Plans No past plan information found. Radiation Treatments * No radiation treatments are documented for this patient in [facility]. Treatments may have been administered in another system. Lifetime Dose Tracking * Chemical Lifetime Dose Automatic Entry Manual Entr y DLP 777 mGycm 777 mGycm 0 mGycm Resolved Problems Problem Noted Date Diagnosed Date Resolved Date Surgical follow-up care 08/14/201209/07
--- OUTSIDE RECORDS SUMMARY | 2024-08-28 01:56 | XMS_ITS | Continuity of Care Document ---
Author Organization [facility] Address [address] [place] [address] Phone Care Team Providers Care Basin Operator Name Role Phone Starr Álvarez Unavailable Unavailable Medications Medication Instructions Dosage Effective Dates (start - stop) Status Comments terbinafine 250 mg tablet take 1 tablet by oral route every day 250 MG - Active Vitamin D3 (with calcium cit-phos) 120 mg-1,000 unit-10 mg tablet - Active magnesium 250 mg tablet - Active ielws-0r-qnn-epa-fish oil-D3 667 mg (280 mg-280 mg-107 mg) capsule - Active diclofenac sodium 50 mg tablet,delayed release take 1 tablet by oral route every day - Active omeprazole 40 mg capsule,delayed release take 1 capsule by oral route every day before a meal 40 MG - Active Advance Directives Directive Yes / No Effective Date File Name No Information Encounters Encounter Description Practice Location Reason(s) For Visit Diagnoses Date Provider Providers Copied on Encounter [facility] [address], [place], [place], [id number] , [place] tel: [phone] [place] No Information 4 Giovany Clements. [address], [place], [place], [id number] . tel: [phone] [facility] ([facility] [address], [place], [place], [id number] , [place] tel: [phone] [place] Pre-op evaluationScreening for lipoid disordersOnychomycosi s of toenailGERD (gastroesophageal reflux disease)Synovial cyst of popliteal space [[place]], right kn 0-201 4 Giovany Clements. [address] [facility], [place], [place], [id number] . tel: [phone] Referring Provider: Rashad Kelly, [address] [facility], [place], [address] . tel:[phone] Family History Family Member Type Diagnosis Age At Onset No Information Payers Payer name Insurance type Covered libertarian ID Authoriza tion(s) BCBS INACTIVE OUT OF STATE [id number] Social History Type Description Quantity Date Captured Comments Sex Female Smoking Status No Information Chief Complaint And Reason For Visit No Information Reason For Referral Reason For Referral No Information History Of Present Illness Encounter Date Complaint History Of Prese nt Illness No Information Functional Status Date Functional Assessmen t No Information Instructions Date Instruction Additional Infor mation No Information Assessments Type Assessment Date No Information Patient Care Teams Name Effective Dates (start - stop) Status Members No Information
--- OUTSIDE RECORDS SUMMARY | 2024-08-28 01:56 | XMS_ITS | Encounter Summary ---
Author Organization [facility] Address [address] [place] [address] Phone Care Team Providers Care Cooler Servicer Name Role Phone Derrell Mcmahan DO Primary Care Provider +1- [phone] Encounter Details Date Type Department Care Team (Late st Contact Info) Description 09/06/2017 Orders Only [facility] ProviderRoxy MD [address] [place] [address] Social History Tobacco Use Types Packs/Day Years Used Date Smoking Tobacco: Never Assessed Comments Unknown Sex and Gender Information Value Date Recorded Sex Assigned at Not on file Legal Sex Female 2:49 AM RESIDENTIAL CASE MANAGER Gender Identity Not on file Sexual Orientation Not on file documented as of this encounter Plan of Treatment Not on file documented as of this encounter Procedures Procedure Name Priority Date/Time Associated Diagnosis Comments DISCHARGE LABORATORY CUMULATIVE REPORT 09/06/2017 12:00 AM RESIDENTIAL CASE MANAGER documented in this encounter Results * DISCHARGE LABORATORY CUMULATIVE REPORT (09/06/2017 12:00 AM RESIDENTIAL CASE MANAGER) Narrative 09/06/2017 12:00 AM RESIDENTIAL CASE MANAGER Ordered by an unspecified provider. us Historical Provider LAB BLOOD ORDERABLES Tia l Result documented in this encounter Visit Diagnoses Not on filedocumented in this encounter Care Teams Cooler Servicer Relationship Specialty Start Date End Date Derrell Mcmahan DO PCP - General 07/20/17 documented as of this encounter
--- OUTSIDE RECORDS SUMMARY | 2024-08-28 01:56 | XMS_ITS | Encounter Summary ---
Author Organization [employer] Address [address] [place] [address] Care Team Providers Care Balancer Scale Name Role Phone Unavailable Primary Care Provider Unavailabl e Encounter Details Date Type Department Care Team (Latest Contact Info) Description 05/15/2000 Outpatient Historical [facility] BLDG Conversion, History Other screening mammogram (Primary Dx) Social History Tobacco Use Types Packs/Day Years Used Date Smoking Tobacco: Never Assessed Comments Unknown Sex and Gender Information Value Date Recorded Sex Assigned at Not on file Legal Sex Female 5:04 AM AUDIO PRODUCTION MANAGER Gender Identity Not on file Sexual Orientation Not on file documented as of this encounter Plan of Treatment Not on file documented as of this encounter Visit Diagnoses Diagnosis Other screening mammogram- Primary documented in this encounter
--- OUTSIDE RECORDS SUMMARY | 2024-08-28 01:56 | XMS_ITS | Referral Summary ---
Author Organization [facility] Address [address] [place] [address] Care Team Providers Care Cellular Equipment Repairer Name Role Phone Derrell Mcmahan DO Primary Care Provider +1- [phone] Encounters Date Type Department Care Team Description 08/04/2024 2:27 PM GIFT CONSULTANT Anesthesia Event [facility] [place] [address] [address] Janett Green MD Zueck, Jason M., MANAGER FIELD SALES 08/04/2024 2:30 PM GIFT CONSULTANT - 08/04/2024 3:15 PM GIFT CONSULTANT Surgery [facility] [place] [address] [facility] [address] [place] [address] Ubaldo Morgan MD COLONOSCOPY 08/04/2024 1:32 PM GIFT CONSULTANT - 08/04/2024 3:45 PM GIFT CONSULTANT Hospital Encounter [facility] [place] [address] [facility] [address] [place] [address] Ubaldo Morgan MD Discharge Disposition: Discharge to home or self care 07/28/2024 Telephone [facility] [address] [place] [address] Ludy Alexander RN 07/28/2024 Telephone [facility] [address] [place] [address] Ludy Alexander RN GI PROCEDURE 7 DAY PRE CALL 06/20/2024 Telephone [facility] [address] [place] [address] [place] [address] Jayla Taylor gi pre procedure assessment from Last 3 Months Allergies No known active allergies Medications multivitamin [...] dysplasia Assessment & Plan (09/26/2023 12:23 PM GIFT CONSULTANT): - reviewed surgical pathology; completely benign - [...] Date Resolved Date Surgical follow-up care 08/14/201209/07 Immunizations Name Administration Dates Next Due Influenza, Quadrivalent, Hig h Dose, Preservative Free, Intrr 04/07/2022,05/17/2021 Influenza, Quadrivalent, Spl it, Preservative Free, Intramuscular 10/11/2015 Influenza, Trivalent, IM (MDV) 05/18/2014 Influenza, Unspecified 07/19/2017,08/13/2012 Pneumococcal Conjugate Pcv20 04/07/2022,11/03/19 22 Tdap 12/03/2015 ZOSTER LIVE 04/10/2014 Social History Tobacco Use Types Packs/Day Years [...] on file Legal Sex Female 2:49 AM GIFT CONSULTANT Gender Identity Not on file Sexual Orientation Not on file Last Filed Vital Signs Vital Sign Reading Time Taken Comments Blood Pressure 117/71 08/04/2024 3:20 PM GIFT CONSULTANT Pulse 53 08/04/2024 3:20 PM GIFT CONSULTANT Temperature 36 ??C (96.8 ??F) 08/04/2024 3:00 PM GIFT CONSULTANT Respiratory Rate 19 08/04/2024 3:20 PM GIFT CONSULTANT Oxygen Saturation 97% 08/04/2024 3:20 PM GIFT CONSULTANT Inhaled Oxygen Concentration - - Weight 54.4 kg (120 lb) 08/04/2024 2:21 PM GIFT CONSULTANT Height 157.5 cm (5' 2 ) 08/04/2024 2:21 PM GIFT CONSULTANT Body Mass Index 21.95 08/04/2024 2:21 PM GIFT CONSULTANT Plan of Treatment Not on file Procedures Procedure Name Priority Date/Time Associated Diagnosis Comments COLONOSCOPY 08/04/2024 2:32 PM GIFT CONSULTANT COLONOSCOPY 08/04/2024 2:26 PM GIFT CONSULTANT Hx of colonic polyps SCREENING MAMMOGRAM BILATERAL [...] Maintenance Results * Colonoscopy (08/04/2024 2:32 PM GIFT CONSULTANT) Anatomical Region Laterality Modality Other Narrative Procedure Note Ubaldo Morgan MD - 08/04/2024 2:32 PM [facility] Patient Name: Shi Reynolds Procedure Date: 08/04/2024 2:32 PM Date of : 1950 Admit Type: Outpatient Age: 74 Gender: Female Attending MD: Ubaldo Morgan M.D. Room: [facility] ENDOSCOPY ROOM 3 Note Status: Finalized Procedure: [...] The scope was passed under direct vision.The PCF [id number] endoscope was introduced through the anus and advanced to the cecum, identified by appendiceal orifice and ileocecal valve. The colonoscopy was performed without difficulty. The patient tolerated the procedure well. The qualityof the bowel preparation was evaluated using the BBPS (Argyle Bowel Preparation Scale) with scores of:Right Colon [...] al Result * Screening Mammogram Bilateral W Fritz W Implants (03/12/2023 8:45 AM CDT) Anatomical [...] compared to prior imaging studies performed at [facility] on 08/20/2018, 11/16/2020 and 01/17/2022. [...] compared to prior imaging studies performed at [facility] on 08/20/2018, 11/16/2020 and 01/17/2022. [...] Bone mineral density was performed on a [employer] Discovery Densitometer. ?? Based on machine cross-calibration [...] mineral density scan were prepared by Ade Torres(Navarro)(Wolf)(BD), CBDT who is accredited by the International Society of Clinical Densitometry. The overall patient assessment and scan interpretation were performed by Mely Estrada MD who is certified by the International Society of Clinical Densitometry. [id number] Rocio Crane MD IMG DXA PROCEDURES Tia l Result * Hepatitis C antibody (04/28/2019 11:15 AM CDT) [facility] Hep C Ab Nonreactive Nonreactive [facility] Comment: Interpretive Data Positive results should be confirmed by a molecular method. If positive, a second separately collected sample should be submitted for Hepatitis C Virus (HCV) RNA Detection and Quantitation by Real-Time Reverse Histology Aide-PCR (RT-PCR). Current interpretive data was last revised on 2016. Blood specimen (specimen) 04/28/2019 11:15 AM CDT 04/28/2019 11:47 AM CDT Rocio Crane MD LAB MICROBIOLOGY - GENE RAL ORDERABLES Edited Result - Final [facility] [address] [place] [address] from Last 3 Months or Most Recently Relevant to Health Maintenance Insurance MEDICARE SOLUTIONS [facility] REF MEDICARE SOLUTIONS MEDICARE SOLUTIONS Advance Directives For more information, please contact: [phone] * Full Code (Latest Code Status on File) Date Activated Date Inactivated Comments 08/28/2023 11:49 AM 08/28/2023 11:50 AM * Full Code Date Activated Date Inactivated Comments 08/08/2018 9:23 AM 08/08/2018 7:22 PM Care Teams Cellular Equipment Repairer Relationship Specialty Start Date End Date Derrell Mcmahan DO PCP - General 07/20/17
== END 2024-08-21 09:04 | disposition home or self-care (01) ==
PROVIDERS: PCP Nurse Practitioner; Visit Provider Nurse Practitioner
DX: Z12.31 Encounter for screening mammogram for malignant neoplasm of breast (principal); M81.0 Age-related osteoporosis without current pathological fracture; M85.88 Other specified disorders of bone density and structure, other site; Z78.0 Asymptomatic menopausal state
CPT/HCPCS: 77063; 77067; 77080